=== PATIENT | male | born 1995 | race Hispanic/Latino ===

== ENCOUNTER 2021-07-15 05:12 | Emergency (ER) | payer MEDICAID, OTHER, SELFPAY ==
[~2021-07-15] VITALS: Ht 182.9 cm; Wt 140.2 kg
[2021-07-15 05:15] VITALS: BP 157/77
[2021-07-15] MEDS ORDERED: KETOROLAC 30MG VIAL (30MG/ML) IM ONE (06:00)
[2021-07-15] MEDS ORDERED: ACETAMINOPHEN 500 MG TABLET PO ONE (06:00)
[2021-07-15] MEDS ORDERED: D-ME118S47 PO (06:01)
[2021-07-15] MEDS ORDERED: AZIT1PAC7 PO (06:01)
[2021-07-15] MEDS ORDERED: IBUP-2070 PO (06:01)
== END 2021-07-15 06:13 | disposition home or self-care (01) ==
LOC: EDH 05:12
DX: U07.1 COVID-19 (principal); Z79.1 Long term (current) use of non-steroidal anti-inflammatories (NSAID)
CPT/HCPCS: 87635; 87804 ×2; 87880; 96372; 99283; C9803; J1885